=== PATIENT | female | born 1995 | race American Indian/Alaskan Native ===

== ENCOUNTER 2019-04-22 11:25 | Emergency (ER) | payer SELFPAY ==
[2019-04-22 11:37] VITALS: BP 130/75
--- NOTE | 2019-04-22 12:16 | XRay Report ---
RIGHT ANKLE, 3 VIEWS INDICATION: ankle pain/injury. COMPARISON: None. IMPRESSION: Mild soft tissue swelling. No acute osseous injury or joint pathology is detected. Signer Name: Lázaro Tucker Jr, MD Signed: 04/22/2019 12:12 PM Workstation Name: [id number]
--- NOTE | 2019-04-22 14:31 | Event Note ---
ED Screening Note Date of service: 04/22/19 Time: 11:30 ED Screening Note: 23 y o presents cc of right ankle pain x today, trip insident pain with walking This initial assessment/diagnostic orders/clinical plan/treatment(s) is/are subject to change based on patients health status, clinical progression and re- assessment by fellow clinical providers in the ED. Further treatment and workup at subsequent clinical providers discretion. Patient/guardian urged not to elope from the ED as their condition may be serious if not clinically assessed and managed. Initial orders include: xr
--- NOTE | 2019-04-22 15:13 | Emergency Department Report ---
ED Lower Extremity HPI - General Chief Complaint: Extremity Injury, Lower Stated Complaint: RT ANKLE INJURY Time Seen by Provider: 04/22/19 15:10 Source: patient Mode of arrival: Wheelchair Limitations: No Limitations - History of Present Illness Initial Comments: 23 YO COMES TO ER CO ANKLE PAIN P ROLLING IT YESTERDAY. MILD R LAT MAL. SWELLING. Complaint: ankle injury -: Sudden Type of Injury: eversion Place: home Severity: mild Improves With: nothing Worsens With: movement - Related Data Allergies Allergy/AdvReac Type Severity Reaction Status Date / Time No Known Allergies Allergy Unverified 04/22/19 11:31 ED Review of Systems ROS: Stated complaint: RT ANKLE INJURY Other details as noted in HPI Comment: All other systems reviewed and negative ED Past Medical Hx - Past Medical History Previous Medical History?: No - Surgical History Past Surgical History?: No - Family History Family history: no significant - Social History Smoking Status: Never Smoker Substance Use Type: None ED Physical Exam - General Limitations: No Limitations General appearance: alert, in no apparent distress - Head Head exam: Present: atraumatic, normocephalic - Eye Eye exam: Present: normal appearance - ENT ENT exam: Present: mucous membranes moist - Neck Neck exam: Present: normal inspection - Respiratory Respiratory exam: Present: normal lung sounds bilaterally. Absent: respiratory distress - Cardiovascular Cardiovascular Exam: Present: regular rate, normal rhythm. Absent: systolic murmur, diastolic murmur, rubs, gallop - GI/Abdominal GI/Abdominal exam: Present: soft, normal bowel sounds - Extremities Exam Extremities exam: Present: normal inspection - Back Exam Back exam: Present: normal inspection - Neurological Exam Neurological exam: Present: alert, oriented X3 - Psychiatric Psychiatric exam: Present: normal affect, normal mood - Skin Skin exam: Present: warm, dry, intact, normal color. Absent: rash ED Course Vital Signs 04/22/19 11:35 Temperature 98.3 F Pulse Rate 97 H Respiratory 16 Rate Blood Pressure 130/75 O2 Sat by Pulse 97 Oximetry ED Lower Extremity MDM - Radiology Data Radiology results: report reviewed, image reviewed - Medical Decision Making xray noted neurovasc intact candice/crutches follow up with ortho next week dc home Vital Signs 04/22/19 11:35 Temperature 98.3 F Pulse Rate 97 H Respiratory 16 Rate Blood Pressure 130/75 O2 Sat by Pulse 97 Oximetry - Differential Diagnosis ro fx Critical care attestation.: If time is entered above; I have spent that time in minutes in the direct care of this critically ill patient, excluding procedure time. ED Disposition Clinical Impression: Ankle sprain Disposition: - TO HOME OR SELFCARE Is pt being admited?: No Does the pt Need Aspirin: No Condition: Stable Instructions: Ankle Sprain (ED) Additional Instructions: ice rest elevate candice wrap crutches motrin or tylenol for pain follow up with Dr Galicia next week referral below Referrals: GRZEGORZ GALICIA MD [Staff Physician] - 3-5 Days Time of Disposition: 15:13
== END 2019-04-22 16:55 | disposition home or self-care (01) ==
LOC: ED 11:25
DX: S93.401A Sprain of unspecified ligament of right ankle, initial encounter (principal); X50.0XXA Overexertion from strenuous movement or load, initial encounter; Y93.89 Activity, other specified; Y92.89 Other specified places as the place of occurrence of the external cause; Y99.8 Other external cause status